=== PATIENT | female | born 1960 | race Caucasian/White ===

== ENCOUNTER → 2017-07-03 | Outpatient (CLI) | payer OTHER ==
--- NOTE | 2017-07-03 09:15 | MR ---
EXAMINATION TYPE: MR knee LT wo con DATE OF EXAM: 07/03/2017 COMPARISON: NONE HISTORY: Medial left knee pain for approximately 2.5 weeks after injury. TECHNIQUE: Multiplanar, multisequence imaging of the left knee is performed without IV contrast. FINDINGS: MEDIAL MENISCUS: There is a longitudinal tear through the posterior horn of the medial meniscus exten ding into the meniscal body. No associated parameniscal cyst. There is associated meniscal extrusion of 3.0 mm. LATERAL MENISCUS: Anterior and posterior horns are intact without tear. CRUCIATE LIGAMENTS: The anterior and posterior cruciate ligaments are intact although there is high s ignal throughout the fibers of the anterior cruciate ligament compatible with low-grade sprain. COLLATERAL LIGAMENTS: The medial collateral ligament and lateral collateral ligament complex are inta ct and unremarkable. EXTENSOR MECHANISM: Visualized quadriceps and patellar tendons are intact. EFFUSION: Prepatellar and infrapatellar subcutaneous soft tissue swelling is seen without focal flui d collection. Small suprapatellar joint effusion is present with increased signal of the suprapatella r fat deep to the lateral patellar facet and patellar apex. POPLITEAL CYST: Very small popliteal cyst is seen between the medial head of the gastrocnemius and s emimembranosus. TRICOMPARTMENT SPACES/CARTILAGE: Focal near full-thickness cartilaginous defect of the weightbearing surface of the medial femoral condyle measures approximately 1.1 x 1.0 cm. No focal cartilage defect is seen of the trochlea, patellar cartilage, or lateral compartment. BONE MARROW SIGNAL: No focal abnormal marrow signal is appreciated. IMPRESSION: 1. Longitudinal tear of the posterior horn of the medial meniscus extending into the meniscal body wi th associated 3.0 mm meniscal extrusion. 2. Just cranial to the medial meniscal tear there is a near full-thickness cartilaginous defect of th e weightbearing surface of the medial femoral condyle measuring 1.1 x 1.0 cm. No underlying bone radha ow edema. 3. Low-grade ACL sprain. 4. Small suprapatellar joint effusion. 5. Prepatellar and infrapatellar superficial subcutaneous edema and inflammatory change.
== END | disposition home or self-care (01) ==
LOC: RADMRIMAIN 07:15
PROVIDERS: ATTEND Orthopaedic Surgery
DX: S83.242A Other tear of medial meniscus, current injury, left knee, initial encounter (principal); S83.512A Sprain of anterior cruciate ligament of left knee, initial encounter

== ENCOUNTER → 2017-07-18 | Outpatient (CLI) | payer OTHER ==
[2017-07-18 15:31] LABS: EKG EKG PERFORMED
[2017-07-18 16:22] LABS: Basophils % (A) 0 %; CH 31.7; Eosinophils % (A) 1 %; HCT 47.2 % (34.0-46.0); HDW 2.44; HGB 15.1 gm/dL (11.4-16.0); Luc # (Auto) 0.15; Luc % (Auto) 2; Lymphocytes # (A) 1.9 k/uL (1.0-4.8); Lymphocytes % (A) 25 %; MCV 93.6 fL (80.0-100.0); Mean Platelet Volume 6.5; Monocytes # (A) 0.5 k/uL (0-1.0); Monocytes % (A) 6 %; Neutrophils % (A) 66 %; RBC 5.04 m/uL (3.80-5.40); RDW 12.4 % (11.5-15.5); WBC 7.6 k/uL (3.8-10.6); WBC (Perox) 7.67
[2017-07-18 16:31] LABS: Anion Gap 14 mmol/L; Carbon Dioxide 25 mmol/L (22-30); Chloride 100 mmol/L (98-107); Potassium 3.9 mmol/L (3.5-5.1); Sodium 139 mmol/L (137-145)
== END | disposition home or self-care (01) ==
LOC: LABPAT 15:13
PROVIDERS: ATTEND Orthopaedic Surgery
DX: Z01.810 Encounter for preprocedural cardiovascular examination (principal); M23.92 Unspecified internal derangement of left knee; Z01.812 Encounter for preprocedural laboratory examination
CPT/HCPCS: 36415; 80051; 85025; 93005

== ENCOUNTER → 2021-03-28 | Outpatient (CLI) | payer MEDICAID ==
--- NOTE | 2021-04-01 13:25 | MM ---
Reason for exam: screening (asymptomatic). Last mammogram was performed 11 months ago. History: Patient is postmenopausal. Physical Findings: A clinical breast exam by your physician is recommended on an annual basis and results should be correlated with mammographic findings. MG Screening Mammo w CAD Bilateral CC and MLO view(s) were taken. Prior study comparison: April 13, 2020, mammogram, performed at [facility]. January 31, 2019, mammogram, performed at [facility]. There are scattered fibroglandular densities. No significant changes when compared with prior studies. ASSESSMENT: Benign, BI-RAD 2 RECOMMENDATION: Routine screening mammogram of both breasts in 1 year.
== END | disposition home or self-care (01) ==
LOC: RADMAMWWP 11:31
PROVIDERS: ATTEND Family Medicine
DX: Z12.31 Encounter for screening mammogram for malignant neoplasm of breast (principal); Z78.0 Asymptomatic menopausal state
CPT/HCPCS: 77067

== ENCOUNTER → 2022-05-02 | Outpatient (CLI) | payer MEDICAID ==
--- NOTE | 2022-05-03 19:37 | MM ---
Reason for Exam: Screening (asymptomatic). Last mammogram was performed 1 year(s) and 2 month(s) ago. Patient History: Menarche at age 16. First Full-Term at age 22. Postmenopausal. Patient has history of breast feeding. Risk Values: Imani 5 year model risk: 1.2%. NCI Lifetime model risk: 5.8%. Prior Study Comparison: 01/31/2019 Screening Mammogram, [facility]. 04/13/2020 Screening Mammogram, [facility]. 03/28/2021 Bilateral Screening Mammogram, [facility]. Tissue Density: The breast tissue is heterogeneously dense. This may lower the sensitivity of mammography. Findings: Analyzed By CAD. There is no suspicious group of microcalcifications or new suspicious mass in either breast. Overall Assessment: Negative, BI-RAD 1 Management: Screening Mammogram of both breasts in 1 year. 1. Patient should continue monthly self breast exams. 2. A clinical breast exam by your physician is recommended on an annual basis. 3. This exam should not preclude additional follow-up of suspicious palpable abnormalities. Electronically signed and approved by: Eliot Rodríguez M.D. Radiologist
== END | disposition home or self-care (01) ==
LOC: RADMAMWWP 07:28
PROVIDERS: ATTEND Family Medicine
DX: Z12.31 Encounter for screening mammogram for malignant neoplasm of breast (principal); Z78.0 Asymptomatic menopausal state
CPT/HCPCS: 77063; 77067

== ENCOUNTER → 2023-05-24 | Outpatient (CLI) | payer MEDICAID ==
--- NOTE | 2023-05-25 11:03 | MM ---
Reason for Exam: Screening (asymptomatic). Last screening mammogram was performed 12 month(s) ago. Patient History: Menarche at age 16. First Full-Term at age 22. Postmenopausal. Patient has history of breast feeding. Risk Values: Imani 5 year model risk: 1.2%. NCI Lifetime model risk: 5.7%. Prior Study Comparison: 12/18/2017 Screening Mammogram, [facility]. 01/31/2019 Screening Mammogram, [facility]. 04/13/2020 Screening Mammogram, [facility]. 03/28/2021 Bilateral Screening Mammogram, [facility]. 05/02/2022 Bilateral MG 3D screening mammo w/cad, [facility]. Tissue Density: There are scattered fibroglandular densities. Findings: Analyzed By CAD. There is no suspicious group of microcalcifications or new suspicious mass in either breast. Overall Assessment: Negative, BI-RAD 1 Management: Screening Mammogram of both breasts in [address] [facility] will attempt to contact patient to return for supplemental views and ultrasound if indicated. Patient should continue monthly self-breast exams. A clinical breast exam by your physician is recommended on an annual basis. This exam should not preclude additional follow-up of suspicious palpable abnormalities. Note on Imani scores and lifetime risk: 1. A Imani score greater than 3% is considered moderate risk. If this is the case, consider specialist referral to assess eligibility for a risk reducing agent. 2. If overall lifetime risk for the development of breast cancer is 20% or higher, the patient may qualify for future screening with alternating mammogram and breast MRI. Electronically signed and approved by: Casey Bhakta DO
== END | disposition home or self-care (01) ==
LOC: RADMAMWWP 09:14
PROVIDERS: ATTEND Internal Medicine
DX: Z12.31 Encounter for screening mammogram for malignant neoplasm of breast (principal); Z78.0 Asymptomatic menopausal state
CPT/HCPCS: 77067

== ENCOUNTER → 2024-06-09 | Outpatient (CLI) | payer OTHER ==
--- NOTE | 2024-06-10 13:25 | BD ---
EXAMINATION TYPE: Axial Bone Density DATE OF EXAM: 06/09/2024 CLINICAL HISTORY: 64 years old Female. ICD-10 CODE: Z78.0 POST MENOPAUSAL Height: 63 Weight: 220 FRAX RISK QUESTIONS: Alcohol (3 or more units per day): no Family History (Parent hip fracture): no Glucocorticoids (More than 3mos): no (Ex: prednisone, prednisolone, methylprednisolone, dexamethasone, and hydrocortisone). History of Fracture in Adulthood: no Secondary Osteoporosis: 1. Type 1 Diabetes: no 2. Hyperthyroidism: no 3. Menopause before 45: no 4. Malnutrition: no 5. Chronic liver disease: no Rheumatoid Arthritis: no Current Tobacco Use: no RISK FACTORS HISTORY OF: Surgery to Spine/Hip(right/left)/Wrist (right/left): bilateral hips When: 50 years ago EXAM MEASUREMENTS: Bone mineral densitometry was performed using the Digital Lab System. Bone mineral density as measured about the Lumbar spine is: ----- L1-L4(G/cm2): 1.202 T Score Values are as follows: ----- L1: 0.3 ----- L2: 0.4 ----- L3: 0.5 ----- L4: -0.4 ----- L1-L4: 0.2 Z Score Values are as follows: ----- L1: 0.6 ----- L2: 0.7 ----- L3: 0.8 ----- L4: -0.1 ----- L1-L4: 0.5 Bone mineral density : baseline Bone mineral density about the L Wrist (g/cm2): 0.700 T Score values are as follows: -----Dist. R+U: 1.6 -----Prox. R+U: -0.4 -----Radius total: 0.4 Z Score values are as follows: -----Dist. R+U: 2.8 -----Prox. R+U: 0.8 -----Radius total: 1.6 Bone mineral density : baseline IMPRESSION: Normal (Values between +1 and -1 indicate normal bone mass). Consider repeating this study in 5 year s or sooner if there is some new clinical indication. NOTE: T-SCORE=SD OF THE YOUNG ADULT MEAN.
--- NOTE | 2024-06-11 17:07 | MM ---
Reason for Exam: Screening (asymptomatic). Last mammogram was performed 1 year(s) and 1 month(s) ago. Patient History: Menarche at age 16. First Full-Term at age 22. Postmenopausal. Patient has history of breast feeding. Risk Values: Imani 5 year model risk: 1.3%. NCI Lifetime model risk: 5.5%. Prior Study Comparison: 03/28/2021 Bilateral Screening Mammogram, [facility]. 05/02/2022 Bilateral MG 3D screening mammo w/cad, [facility]. 05/24/2023 Bilateral MG screening mammo w CAD, [facility]. Tissue Density: There are scattered areas of fibroglandular density. Findings: Analyzed By CAD. There is no suspicious group of microcalcifications or new suspicious mass in either breast. Overall Assessment: Negative, BI-RAD 1 Management: Screening Mammogram of both breasts in 1 year. . Patient should continue monthly self-breast exams. A clinical breast exam by your physician is recommended on an annual basis. This exam should not preclude additional follow-up of suspicious palpable abnormalities. Note on Imani scores and lifetime risk: 1. A Imani score greater than 3% is considered moderate risk. If this is the case, consider specialist referral to assess eligibility for a risk reducing agent. 2. If overall lifetime risk for the development of breast cancer is 20% or higher, the patient may qualify for future screening with alternating mammogram and breast MRI. Electronically signed and approved by: Eliot Rodríguez M.D. Radiologist
== END | disposition home or self-care (01) ==
LOC: RADMAMWWP 16:05
PROVIDERS: ATTEND Family Medicine
DX: Z12.31 Encounter for screening mammogram for malignant neoplasm of breast (principal); R92.323 Mammographic fibroglandular density, bilateral breasts; Z78.0 Asymptomatic menopausal state
CPT/HCPCS: 77067; 77080